=== PATIENT | male | born 1950 | race Caucasian/White ===

== ENCOUNTER → 2016-07-12 | Outpatient (CLI) | payer MEDICARE, BC, OTHER ==
[~2016-07-12] VITALS: Ht 185.4 cm; Wt 99.8 kg
[~2016-07-12] MED LIST: ASPI81TA85 PO; ATOR40TA PO; DICY10SO PO; DUTA1CAP PO; FISH1000 PO; IBUP200C PO; LIDOCAINE 2% INJ 100 MG/5 ML SDV (FOR ANES.) As Ordered ONE; NS 1,000 ML IV ONE; PROPOFOL 500 MG/50 ML VIAL As Ordered ONE
--- NOTE | 2016-07-12 10:23 | ROOR ---
Patient Name: Mike Bradford Procedure Date: 07/12/2016 10:04 AM Date of : 1950 Age: 65 Room: [facility] Gender: Male Note Status: Finalized Procedure: Colonoscopy Indications: Screening for colorectal malignant neoplasm Providers: Brown DEL ANGEL MD Referring MD: SISI ELDRIDGE MD Requesting Provider: Medicines: Monitored Anesthesia Care Complications: No immediate complications. Procedure: Pre-Anesthesia Assessment: - The heart rate, respiratory rate, oxygen saturations, blood pressure, adequacy of pulmonary ventilation, and response to care were monitored throughout the procedure. The Colonoscope was introduced through the anus and advanced to the terminal ileum, with identification of the appendiceal orifice and IC valve. The colonoscopy was performed without difficulty. The patient tolerated the procedure well. The quality of the bowel preparation was good. Findings: The perianal and digital rectal examinations were normal. Three sessile polyps were found in the sigmoid colon. The polyps were 3 to 5 mm in size. These polyps were removed with a cold snare. Resection and retrieval were complete. Small Internal Hemorrhoids. The exam was otherwise without abnormality on direct and retroflexion views. Impression: - Three 3 to 5 mm polyps in the sigmoid colon, removed with a cold snare. Resected and retrieved. - Small Internal Hemorrhoids. - The examination was otherwise normal on direct and retroflexion views. Recommendation: - Repeat colonoscopy in 3 years for surveillance. Brown Del Angel MD Brown DEL ANGEL MD 07/12/2016 10:22:17 AM This report has been signed electronically. Number of Addenda: 0 Note Initiated On: 07/12/2016 10:04 AM Estimated Blood Loss: Estimated blood loss: none.
[2016-07-12 10:45] VITALS: BP 138/81
== END | disposition home or self-care (01) ==
LOC: M OPP 09:12
PROVIDERS: ATTEND Internal Medicine Gastroenterology
DX: Z12.11 Encounter for screening for malignant neoplasm of colon (principal); D12.5 Benign neoplasm of sigmoid colon; K64.8 Other hemorrhoids; E78.5 Hyperlipidemia, unspecified; R35.0 Frequency of micturition; Z91.040 Latex allergy status; Z79.82 Long term (current) use of aspirin; Z79.899 Other long term (current) drug therapy; Z80.1 Family history of malignant neoplasm of trachea, bronchus and lung; Z80.3 Family history of malignant neoplasm of breast

== ENCOUNTER → 2016-09-20 | Outpatient (REF) | payer MEDICARE, OTHER ==
[~2016-09-20] MED LIST changes: -ATOR40TA PO; +ATOR40TA75 PO; -IBUP200C PO; +IBUP200C10 PO; -LIDOCAINE 2% INJ 100 MG/5 ML SDV (FOR ANES.) As Ordered ONE; -NS 1,000 ML IV ONE; -PROPOFOL 500 MG/50 ML VIAL As Ordered ONE
[2016-09-20 12:42] LABS: ALBUMIN 3.7 GM/DL (3.2-5.2); ALBUMIN/GLOBULIN RATIO 1.09 (1.00-1.93); ALKALINE PHOSPHATASE 146 U/L (45-117); ALT/SGPT 51 U/L (12-78); ANION GAP 8 MEQ/L (8-16); AST/SGOT 30 U/L (15-37); BILIRUBIN,TOTAL 0.7 MG/DL (0.2-1.0); BLOOD UREA NITROGEN 16 MG/DL (7-18); CALCIUM LEVEL 8.9 MG/DL (8.8-10.2); CARBON DIOXIDE LEVEL 28 MEQ/L (21-32); CHLORIDE LEVEL 106 MEQ/L (98-107); CHOLESTEROL LEVEL 95 MG/DL (<200); CREATININE FOR GFR 1.04 MG/DL (0.70-1.30); GLOMERULAR FILTRATION RATE > 60.0 (>49); GLUCOSE, FASTING 95 MG/DL (80-110); POTASSIUM SERUM 4.1 MEQ/L (3.5-5.1); SODIUM LEVEL 142 MEQ/L (136-145); TOTAL PROTEIN 7.1 GM/DL (6.4-8.2); TRIGLYCERIDES LEVEL 149 MG/DL (<150)
== END ==
LOC: M LABDRAW1 11:35
PROVIDERS: ATTEND Family Medicine
DX: E78.5 Hyperlipidemia, unspecified (principal); R53.83 Other fatigue; Z11.59 Encounter for screening for other viral diseases

== ENCOUNTER → 2017-09-26 | Outpatient (REF) | payer MEDICARE, OTHER ==
[2017-09-26 13:52] LABS: ALBUMIN 3.6 GM/DL (3.2-5.2); ALBUMIN/GLOBULIN RATIO 0.92 (1.00-1.93); ALKALINE PHOSPHATASE 135 U/L (45-117); ALT/SGPT 67 U/L (12-78); ANION GAP 5 MEQ/L (8-16); AST/SGOT 47 U/L (7-37); BILIRUBIN,TOTAL 1.1 MG/DL (0.2-1.0); BLOOD UREA NITROGEN 16 MG/DL (7-18); CALCIUM LEVEL 8.5 MG/DL (8.8-10.2); CARBON DIOXIDE LEVEL 29 MEQ/L (21-32); CHLORIDE LEVEL 108 MEQ/L (98-107); CHOLESTEROL LEVEL 107 MG/DL (<200); CHOLESTEROL RISK RATIO 1.945 (<5); CREATININE FOR GFR 1.05 MG/DL (0.70-1.30); GLOMERULAR FILTRATION RATE > 60.0 (>49); GLUCOSE, FASTING 98 MG/DL (70-100); HDL CHOLESTEROL 55 MG/DL (>40); LDL CHOLESTEROL 35.4 MG/DL (<100); NON-HDL-C 52 MG/DL; POTASSIUM SERUM 3.8 MEQ/L (3.5-5.1); SODIUM LEVEL 142 MEQ/L (136-145); TOTAL PROTEIN 7.5 GM/DL (6.4-8.2); TRIGLYCERIDES LEVEL 83 MG/DL (<150)
[2017-09-26 14:03] LABS: MALB URINE SIEMENS 6.1 MG/L; MAU/CREAT RATIO 2.8 MCG/MG (0.0-30.0)
== END ==
LOC: M SFHCPLAZ 10:42
DX: I11.9 Hypertensive heart disease without heart failure (principal); E78.2 Mixed hyperlipidemia; K58.9 Irritable bowel syndrome, unspecified; R39.15 Urgency of urination
CPT/HCPCS: 84443

== ENCOUNTER → 2023-01-11 | Outpatient (CLI) | payer MEDICARE, OTHER ==
[~2023-01-11] MED LIST changes: -ASPI81TA85 PO; +ASPI81TA86 PO; -DUTA1CAP PO; +DUTA1CAP2 PO; -IBUP200C10 PO; +IBUP200C25 PO
[2023-01-11 14:31] LABS: BASO % 0.6 % (0.0-1.0); EOS # 0.2 10^3/uL (0.0-0.5); EOS % 2.8 % (0.0-3.0); HEMATOCRIT 41.4 % (42.0-52.0); HEMOGLOBIN 14.4 g/dl (13.5-17.5); LYMPH # 1.9 10^3/uL (1.5-5.0); LYMPH % 30.6 % (24.0-44.0); MEAN CORPUSCULAR HEMOGLOBIN 31.4 pg (27.0-33.0); MEAN CORPUSCULAR HGB CONC 34.8 g/dl (32.0-36.5); MEAN CORPUSCULAR VOLUME 90.4 fl (80.0-96.0); MONO # 0.5 10^3/uL (0.0-0.8); MONO % 7.1 % (2.0-8.0); NEUTROPHILS # 3.7 10^3/uL (1.5-8.5); NEUTROPHILS % 57.6 % (36.0-66.0); PLATELET COUNT, AUTOMATED 186 10^3/uL (150-450); RED BLOOD COUNT 4.58 10^6/uL (4.30-6.10); WHITE BLOOD COUNT 6.3 10^3/uL (4.0-10.0)
[2023-01-11 14:36] LABS: ALBUMIN 3.8 G/DL (3.2-5.2); ALKALINE PHOSPHATASE 80 U/L (46-116); ALT/SGPT 21 U/L (7.0-40); AST/SGOT 24 U/L (<34); BILIRUBIN,TOTAL 1.8 MG/DL (0.3-1.2); BLOOD UREA NITROGEN 14 MG/DL (9-23); CALCIUM LEVEL 8.8 MG/DL (8.3-10.6); CARBON DIOXIDE LEVEL 30 MMOL/L (20-31); CHLORIDE LEVEL 106 MMOL/L (98-107); CHOLESTEROL LEVEL 106 MG/DL (<200); CREATININE FOR GFR 0.83 MG/DL (0.70-1.30); GLOMERULAR FILTRATION RATE > 60.0 (>42); GLUCOSE, FASTING 103 MG/DL (74-106); HDL CHOLESTEROL 42.4 MG/DL (>40); LDL CHOLESTEROL 41.8 MG/DL (<100); NON-HDL-C 63.6 MG/DL; POTASSIUM SERUM 3.4 MMOL/L (3.5-5.1); SODIUM LEVEL 143 MMOL/L (136-145); TRIGLYCERIDES LEVEL 109 MG/DL (<150)
[2023-01-11 14:37] LABS: THYROID STIMULATING HORMONE 0.654 uIU/ML (0.55-4.78)
== END ==
LOC: M WUC 10:33
PROVIDERS: ATTEND Internal Medicine Endocrinology, Diabetes & Metabolism
DX: E78.2 Mixed hyperlipidemia (principal)

== ENCOUNTER → 2023-02-16 | Outpatient (CLI) | payer MEDICARE, BC, OTHER ==
[2023-02-16 09:32] LABS: HEMATOCRIT 39.9 % (42.0-52.0); HEMOGLOBIN 13.9 g/dl (13.5-17.5); MEAN CORPUSCULAR HEMOGLOBIN 31.4 pg (27.0-33.0); MEAN CORPUSCULAR HGB CONC 34.8 g/dl (32.0-36.5); MEAN CORPUSCULAR VOLUME 90.3 fl (80.0-96.0); PLATELET COUNT, AUTOMATED 172 10^3/uL (150-450); RED BLOOD COUNT 4.42 10^6/uL (4.30-6.10)
[2023-02-16 09:39] LABS: HEMOGLOBIN A1c 5.2 % (4.0-6.0)
[2023-02-16 09:40] LABS: ALBUMIN 3.5 G/DL (3.2-5.2); ALKALINE PHOSPHATASE 89 U/L (46-116); ALT/SGPT 22 U/L (7.0-40); AST/SGOT 22 U/L (<34); BILIRUBIN,TOTAL 1.5 MG/DL (0.3-1.2); BLOOD UREA NITROGEN 22 MG/DL (9-23); CALCIUM LEVEL 9.2 MG/DL (8.3-10.6); CARBON DIOXIDE LEVEL 28 MMOL/L (20-31); CHLORIDE LEVEL 111 MMOL/L (98-107); CHOLESTEROL LEVEL 71 MG/DL (<200); CHOLESTEROL RISK RATIO 2.41 (<5); CREATININE FOR GFR 0.79 MG/DL (0.70-1.30); GLOMERULAR FILTRATION RATE > 60.0 (>42); GLUCOSE, FASTING 120 MG/DL (74-106); HDL CHOLESTEROL 29.4 MG/DL (>40); LDL CHOLESTEROL 25.2 MG/DL (<100); NON-HDL-C 41.6 MG/DL; POTASSIUM SERUM 3.5 MMOL/L (3.5-5.1); SODIUM LEVEL 143 MMOL/L (136-145); TOTAL PROTEIN 6.5 G/DL (5.7-8.2); TRIGLYCERIDES LEVEL 82 MG/DL (<150)
[2023-02-16 09:43] LABS: THYROID STIMULATING HORMONE 0.008 uIU/ML (0.55-4.78)
== END ==
LOC: M RAD 08:21
PROVIDERS: ATTEND Family Medicine
DX: I10 Essential (primary) hypertension (principal); R53.83 Other fatigue; E03.9 Hypothyroidism, unspecified; R94.31 Abnormal electrocardiogram [ECG] [EKG]; M47.816 Spondylosis without myelopathy or radiculopathy, lumbar region; M47.817 Spondylosis without myelopathy or radiculopathy, lumbosacral region; N20.0 Calculus of kidney; Z12.5 Encounter for screening for malignant neoplasm of prostate; Z79.899 Other long term (current) drug therapy

== ENCOUNTER 2023-03-02 14:50 | Emergency (ER) | payer MEDICARE, BC, OTHER ==
[~2023-03-02] VITALS: Ht 188 cm; Wt 87.1 kg
[2023-03-02] MEDS ORDERED: LOSA50TA28 PO (15:03)
[2023-03-02 15:47] LABS: BASO % 0.3 % (0.0-1.0); EOS # 0.1 10^3/uL (0.0-0.5); EOS % 1.6 % (0.0-3.0); HEMATOCRIT 35.9 % (42.0-52.0); HEMOGLOBIN 12.4 g/dl (13.5-17.5); LYMPH # 1.4 10^3/uL (1.5-5.0); LYMPH % 36.4 % (24.0-44.0); MEAN CORPUSCULAR HEMOGLOBIN 30.8 pg (27.0-33.0); MEAN CORPUSCULAR HGB CONC 34.5 g/dl (32.0-36.5); MEAN CORPUSCULAR VOLUME 89.1 fl (80.0-96.0); MONO # 0.5 10^3/uL (0.0-0.8); NEUTROPHILS # 1.8 10^3/uL (1.5-8.5); NEUTROPHILS % 48.7 % (36.0-66.0); PLATELET COUNT, AUTOMATED 146 10^3/uL (150-450); RED BLOOD COUNT 4.03 10^6/uL (4.30-6.10); WHITE BLOOD COUNT 3.8 10^3/uL (4.0-10.0)
[2023-03-02 16:20] LABS: BLOOD UREA NITROGEN 25 MG/DL (9-23); CALCIUM LEVEL 9.2 MG/DL (8.3-10.6); CARBON DIOXIDE LEVEL 25 MMOL/L (20-31); CHLORIDE LEVEL 112 MMOL/L (98-107); CK-MB VALUE MASS 1.4 NG/ML (<3.6); CPK CREATINE PHOSPHOKINASE 56 U/L (46-171); CREATININE FOR GFR 0.72 MG/DL (0.70-1.30); GLOMERULAR FILTRATION RATE > 60.0 (>42); GLUCOSE, FASTING 120 MG/DL (74-106); POTASSIUM SERUM 3.4 MMOL/L (3.5-5.1); SODIUM LEVEL 141 MMOL/L (136-145)
[2023-03-02 16:25] LABS: INR 1.35; PROTHROMBIN TIME 16.2 SECONDS (12.5-14.5)
[2023-03-02 16:26] LABS: PARTIAL THROMBOPLASTIN TIME 28.5 SECONDS (24.8-34.2)
[2023-03-02] MEDS ORDERED: ASPIRIN 81MG CHEW TABLET PO ONE ×2 (16:35→16:40)
[2023-03-02] MEDS ORDERED: ISOVUE-370 76% 100ML VIAL As Ordered ONE (16:47)
[2023-03-02 17:13] LABS: CK-MB VALUE MASS 1.7 NG/ML (<3.6)
[2023-03-02] MEDS: NITROGLYCERIN 0.4MG SUBL TABLET SL PRN ×3 (17:14→19:23)
[2023-03-02 17:15] LABS: MB/CK RELATIVE INDEX 3.61 (< OR =4)
[2023-03-02] MEDS ORDERED: HEPARIN SOD (PORCINE) 5000UNITS/ML 1ML VIAL/SYRINGE IV ONE ×2 (17:50→18:10)
[2023-03-02] MEDS ORDERED: HEPARIN SOD (PORCINE) 5000UNITS/ML 1ML VIAL/SYRINGE IV PRN (17:50)
[2023-03-02] MEDS ORDERED: HEPARIN DRIP 25,000 UNITS in IV 1 EA IV SCH ×2 (17:50→18:10)
[2023-03-02 19:23] VITALS: BP 131/81
[2023-03-02 20:23] VITALS: BP 137/79; TEMP 97.7; O2SAT 96
== END 2023-03-02 20:27 | disposition short-term general hospital (02) ==
LOC: M ED 14:50
DX: R07.9 Chest pain, unspecified (principal); I45.10 Unspecified right bundle-branch block; J45.909 Unspecified asthma, uncomplicated; E03.9 Hypothyroidism, unspecified; R51.9 Headache, unspecified; Z88.8 Allergy status to other drugs, medicaments and biological substances; Z91.040 Latex allergy status; Z79.899 Other long term (current) drug therapy
CPT/HCPCS: 71045; 71275; 80048; 82550; 82553; 84484; 85025; 85610; 85730; 93005; 96365; 99285; Q9967

== ENCOUNTER → 2023-03-15 | Outpatient (CLI) | payer MEDICARE, BC, OTHER ==
[~2023-03-15] MED LIST changes: +LOSA50TA28 PO
[2023-03-15 10:34] LABS: HEMATOCRIT 38.2 % (42.0-52.0); HEMOGLOBIN 12.9 g/dl (13.5-17.5); MEAN CORPUSCULAR HEMOGLOBIN 30.2 pg (27.0-33.0); MEAN CORPUSCULAR HGB CONC 33.8 g/dl (32.0-36.5); MEAN CORPUSCULAR VOLUME 89.5 fl (80.0-96.0); PLATELET COUNT, AUTOMATED 174 10^3/uL (150-450); RED BLOOD COUNT 4.27 10^6/uL (4.30-6.10); WHITE BLOOD COUNT 4.7 10^3/uL (4.0-10.0)
[2023-03-15 11:16] LABS: PROSTATIC SPECIFIC AG MONITOR 1.85 NG/ML (< 4.00)
[2023-03-15 11:21] LABS: THYROID STIMULATING HORMONE 0.008 uIU/ML (0.55-4.78); TOTAL 25(OH) VITAMIN D 93.6 NG/ML (20.0-100.0)
[2023-03-15 11:22] LABS: ALKALINE PHOSPHATASE 85 U/L (46-116); ALT/SGPT 50 U/L (7.0-40); AST/SGOT 23 U/L (<34); BILIRUBIN,TOTAL 1.2 MG/DL (0.3-1.2); BLOOD UREA NITROGEN 21 MG/DL (9-23); CALCIUM LEVEL 8.7 MG/DL (8.3-10.6); CARBON DIOXIDE LEVEL 28 MMOL/L (20-31); CHLORIDE LEVEL 111 MMOL/L (98-107); CHOLESTEROL LEVEL 72 MG/DL (<200); CHOLESTEROL RISK RATIO 2.18 (<5); CREATININE FOR GFR 0.75 MG/DL (0.70-1.30); GLOMERULAR FILTRATION RATE > 60.0 (>42); GLUCOSE, FASTING 111 MG/DL (74-106); LDL CHOLESTEROL 20.8 MG/DL (<100); SODIUM LEVEL 144 MMOL/L (136-145); TOTAL PROTEIN 5.9 G/DL (5.7-8.2); TRIGLYCERIDES LEVEL 91 MG/DL (<150)
[2023-03-15 11:23] LABS: FREE T4 6.13 NG/DL (0.89-1.76)
[2023-03-15 15:00] LABS: FREE T3 > 20.0 PG/ML (2.3-4.2)
== END ==
LOC: M WUC 08:11
PROVIDERS: ATTEND Family Medicine
DX: I10 Essential (primary) hypertension (principal); E03.9 Hypothyroidism, unspecified; D64.9 Anemia, unspecified; Z86.39 Personal history of other endocrine, nutritional and metabolic disease; Z79.899 Other long term (current) drug therapy

== ENCOUNTER → 2023-04-26 | Outpatient (REF) | payer MEDICARE, BC, OTHER ==
[2023-04-26 13:44] LABS: THYROID STIMULATING HORMONE 0.008 uIU/ML (0.55-4.78)
[2023-04-26 13:46] LABS: FREE T4 1.17 NG/DL (0.89-1.76)
[2023-04-26 13:51] LABS: TOTAL T3 132.8 NG/DL (60.0-181.0)
== END ==
LOC: M LABDRWAD 12:59
PROVIDERS: ATTEND Physician Assistant
DX: E03.9 Hypothyroidism, unspecified (principal)

== ENCOUNTER → 2023-05-10 | Outpatient (REF) | payer MEDICARE, BC, OTHER ==
[2023-05-10 14:00] LABS: FREE T3 12.8 PG/ML (2.3-4.2); FREE T4 2.11 NG/DL (0.89-1.76); THYROID STIMULATING HORMONE 0.008 uIU/ML (0.55-4.78)
== END ==
LOC: M LABDRWAD 13:00
PROVIDERS: ATTEND Medical Genetics Clinical Genetics (M.D.)
DX: E05.90 Thyrotoxicosis, unspecified without thyrotoxic crisis or storm (principal)

== ENCOUNTER → 2023-05-24 | Outpatient (CLI) | payer MEDICARE, BC | LOC: M RAD 14:56 | PROVIDERS: ATTEND Family Medicine | DX: R22.41 Localized swelling, mass and lump, right lower limb (principal) ==

== ENCOUNTER → 2023-05-25 | Outpatient (REF) | payer MEDICARE, BC ==
[2023-05-25 14:13] LABS: ALBUMIN 3.2 G/DL (3.2-5.2); ALKALINE PHOSPHATASE 94 U/L (46-116); ALT/SGPT 18 U/L (7.0-40); AST/SGOT 16 U/L (<34); BILIRUBIN,TOTAL 0.9 MG/DL (0.3-1.2); BLOOD UREA NITROGEN 17 MG/DL (9-23); CALCIUM LEVEL 8.9 MG/DL (8.3-10.6); CARBON DIOXIDE LEVEL 32 MMOL/L (20-31); CHLORIDE LEVEL 109 MMOL/L (98-107); CREATININE FOR GFR 0.74 MG/DL (0.70-1.30); GLOMERULAR FILTRATION RATE > 60.0 (>42); GLUCOSE, FASTING 103 MG/DL (74-106); POTASSIUM SERUM 3.7 MMOL/L (3.5-5.1); SODIUM LEVEL 144 MMOL/L (136-145); TOTAL PROTEIN 6.4 G/DL (5.7-8.2)
[2023-05-25 14:20] LABS: TOTAL T3 158.3 NG/DL (60.0-181.0)
[2023-05-25 14:21] LABS: BASO % 0.9 % (0.0-1.0); EOS # 0.3 10^3/uL (0.0-0.5); EOS % 5.9 % (0.0-3.0); HEMATOCRIT 39.8 % (42.0-52.0); HEMOGLOBIN 13.1 g/dl (13.5-17.5); LYMPH # 1.6 10^3/uL (1.5-5.0); LYMPH % 35.1 % (24.0-44.0); MEAN CORPUSCULAR HEMOGLOBIN 30.8 pg (27.0-33.0); MEAN CORPUSCULAR HGB CONC 32.9 g/dl (32.0-36.5); MEAN CORPUSCULAR VOLUME 93.6 fl (80.0-96.0); MONO # 0.5 10^3/uL (0.0-0.8); MONO % 11.5 % (2.0-8.0); NEUTROPHILS # 2.1 10^3/uL (1.5-8.5); NEUTROPHILS % 46.4 % (36.0-66.0); PLATELET COUNT, AUTOMATED 155 10^3/uL (150-450); RED BLOOD COUNT 4.25 10^6/uL (4.30-6.10); WHITE BLOOD COUNT 4.4 10^3/uL (4.0-10.0)
== END ==
LOC: M LABDRWAD 12:40
PROVIDERS: ATTEND Student in an Organized Health Care Education/Training Program
DX: E05.90 Thyrotoxicosis, unspecified without thyrotoxic crisis or storm (principal)

== ENCOUNTER → 2023-08-04 | Outpatient (REF) | payer MEDICARE, BC ==
[2023-08-04 13:37] LABS: BASO # 0.1 10^3/uL (0.0-0.2); BASO % 1.2 % (0.0-1.0); EOS # 0.2 10^3/uL (0.0-0.5); EOS % 5.2 % (0.0-3.0); HEMATOCRIT 41.5 % (42.0-52.0); HEMOGLOBIN 14.1 g/dl (13.5-17.5); LYMPH # 1.5 10^3/uL (1.5-5.0); MEAN CORPUSCULAR HEMOGLOBIN 31.5 pg (27.0-33.0); MEAN CORPUSCULAR VOLUME 92.6 fl (80.0-96.0); MONO # 0.5 10^3/uL (0.0-0.8); MONO % 11.4 % (2.0-8.0); NEUTROPHILS % 46.2 % (36.0-66.0); PLATELET COUNT, AUTOMATED 152 10^3/uL (150-450); RED BLOOD COUNT 4.48 10^6/uL (4.30-6.10); WHITE BLOOD COUNT 4.2 10^3/uL (4.0-10.0)
[2023-08-04 14:12] LABS: ALBUMIN 3.8 G/DL (3.2-5.2); ALKALINE PHOSPHATASE 109 U/L (46-116); ALT/SGPT 27 U/L (7.0-40); AST/SGOT 23 U/L (<34); BILIRUBIN,TOTAL 1.2 MG/DL (0.3-1.2); BLOOD UREA NITROGEN 15 MG/DL (9-23); CALCIUM LEVEL 9.2 MG/DL (8.3-10.6); CARBON DIOXIDE LEVEL 31 MMOL/L (20-31); CHLORIDE LEVEL 103 MMOL/L (98-107); CREATININE FOR GFR 1.01 MG/DL (0.70-1.30); FREE T4 0.51 NG/DL (0.89-1.76); GLOMERULAR FILTRATION RATE > 60.0 (>42); GLUCOSE, FASTING 95 MG/DL (74-106); SODIUM LEVEL 139 MMOL/L (136-145); TOTAL T3 115.7 NG/DL (60.0-181.0)
== END ==
LOC: M LABDRWAD 12:22
PROVIDERS: ATTEND Internal Medicine Endocrinology, Diabetes & Metabolism
DX: E05.90 Thyrotoxicosis, unspecified without thyrotoxic crisis or storm (principal)

== ENCOUNTER → 2023-09-13 | Outpatient (REF) | payer MEDICARE, BC ==
[2023-09-13 15:47] LABS: TOTAL T3 120.3 NG/DL (60.0-181.0)
[2023-09-13 15:48] LABS: FREE T4 0.63 NG/DL (0.89-1.76); THYROID STIMULATING HORMONE 9.272 uIU/ML (0.55-4.78)
== END ==
LOC: M LABDRAWP 13:28
PROVIDERS: ATTEND Internal Medicine Endocrinology, Diabetes & Metabolism
DX: E05.90 Thyrotoxicosis, unspecified without thyrotoxic crisis or storm (principal)

== ENCOUNTER → 2023-10-26 | Outpatient (REF) | payer MEDICARE, OTHER ==
[2023-10-26 13:54] LABS: FREE T4 0.82 NG/DL (0.89-1.76); THYROID STIMULATING HORMONE 5.239 uIU/ML (0.55-4.78)
[2023-10-26 13:56] LABS: TOTAL T3 124.3 NG/DL (60.0-181.0)
== END ==
LOC: M LABDRWAD 12:46
PROVIDERS: ATTEND Internal Medicine Endocrinology, Diabetes & Metabolism
DX: E05.90 Thyrotoxicosis, unspecified without thyrotoxic crisis or storm (principal)

== ENCOUNTER → 2023-12-09 | Outpatient (REF) | payer MEDICARE, OTHER ==
[2023-12-09 14:01] LABS: THYROID STIMULATING HORMONE 2.526 uIU/ML (0.55-4.78); TOTAL T3 109.8 NG/DL (60.0-181.0)
[2023-12-09 14:03] LABS: FREE T4 1.02 NG/DL (0.89-1.76)
== END ==
LOC: M LABWUC 13:01
PROVIDERS: ATTEND Internal Medicine Endocrinology, Diabetes & Metabolism
DX: E05.90 Thyrotoxicosis, unspecified without thyrotoxic crisis or storm (principal)

== ENCOUNTER → 2024-03-07 | Outpatient (REF) | payer MEDICARE, OTHER ==
[~2024-03-07] MED LIST changes: +ALEN70TA82 PO; +ATOR1TAB19 PO; +DOXA1TAB42 PO; +ERGO500029 PO; +FURO40TA2 PO; +POTA1TAB21 PO; +PROP50TA3 PO; +PROP60CA PO
[2024-03-07 15:17] LABS: CREATININE, URINE 379.1 MG/DL; MAU/CREAT RATIO 2.6 MCG/MG (0.0-30.0)
[2024-03-07 15:47] LABS: PSA SCREENING 2.1 NG/ML (< 4.00)
[2024-03-07 15:49] LABS: HEMOGLOBIN A1c 5.3 % (4.0-6.0)
[2024-03-07 15:54] LABS: THYROID STIMULATING HORMONE 2.221 uIU/ML (0.55-4.78)
[2024-03-07 15:59] LABS: ALBUMIN 4.3 G/DL (3.2-5.2); BILIRUBIN,TOTAL 2.2 MG/DL (0.3-1.2); CALCIUM LEVEL 9.5 MG/DL (8.3-10.6); CHOLESTEROL RISK RATIO 2.71 (<5); CREATININE FOR GFR 1.28 MG/DL (0.70-1.30); GLOMERULAR FILTRATION RATE 58.5 (>42); HDL CHOLESTEROL 47.8 MG/DL (>40); LDL CHOLESTEROL 58.6 MG/DL (<100); NON-HDL-C 82.2 MG/DL; POTASSIUM SERUM 4.5 MMOL/L (3.5-5.1); TOTAL PROTEIN 7.8 G/DL (5.7-8.2)
== END ==
LOC: M LAB REF 13:11
PROVIDERS: ATTEND Family Medicine Addiction Medicine
DX: Z76.89 Persons encountering health services in other specified circumstances (principal); R35.0 Frequency of micturition; Z12.5 Encounter for screening for malignant neoplasm of prostate; Z79.899 Other long term (current) drug therapy
CPT/HCPCS: 80053; 80061; 82043; 83036; 84443; G0103

== ENCOUNTER → 2024-06-06 | Outpatient (REF) | payer MEDICARE, OTHER ==
[2024-06-06 14:49] LABS: FREE T4 1.08 NG/DL (0.89-1.76); THYROID STIMULATING HORMONE 2.263 uIU/ML (0.55-4.78)
[2024-06-06 14:51] LABS: TOTAL T3 109.8 NG/DL (60.0-181.0)
== END ==
LOC: M LABDRWAD 12:58
PROVIDERS: ATTEND Internal Medicine
DX: E05.90 Thyrotoxicosis, unspecified without thyrotoxic crisis or storm (principal)

== ENCOUNTER → 2024-08-29 | Outpatient (CLI) | payer MEDICARE, BC ==
[~2024-08-29] MED LIST changes: +ASPI81TA26 PO; +CETI-24 PO; +TAMS-18 PO
[2024-08-29 17:06] LABS: CALCIUM LEVEL 9.4 MG/DL (8.3-10.6); CARBON DIOXIDE LEVEL 28.0 MMOL/L (20-31); CHLORIDE LEVEL 103.0 MMOL/L (98-107); CHOLESTEROL LEVEL 120.0 MG/DL (<200); CHOLESTEROL RISK RATIO 2.99 (<5); CREATININE FOR GFR 1.11 MG/DL (0.70-1.30); GLOMERULAR FILTRATION RATE 69.3 (>42); LDL CHOLESTEROL 44.7 MG/DL (<100); NON-HDL-C 79.9 MG/DL; POTASSIUM SERUM 4.1 MMOL/L (3.5-5.1); SODIUM LEVEL 141.0 MMOL/L (136-145); TRIGLYCERIDES LEVEL 176.0 MG/DL (<150)
== END ==
LOC: M LAB 15:47
PROVIDERS: ATTEND Internal Medicine Critical Care Medicine
DX: I34.1 Nonrheumatic mitral (valve) prolapse (principal); E78.00 Pure hypercholesterolemia, unspecified

== ENCOUNTER → 2024-08-30 | Outpatient (CLI) | payer MEDICARE, BC ==
[~2024-08-30] MED LIST changes: +ISOVUE-370 76% 100 ML VIAL As Ordered ONE
== END ==
LOC: M RAD 09:30
PROVIDERS: ATTEND Internal Medicine Critical Care Medicine
DX: I34.1 Nonrheumatic mitral (valve) prolapse (principal)
CPT/HCPCS: 71275; Q9967

== ENCOUNTER 2024-09-28 08:46 | Emergency (ER) | payer MEDICARE, BC ==
[~2024-09-28 08:46] MED LIST changes: -ISOVUE-370 76% 100 ML VIAL As Ordered ONE
[2024-09-28 09:39] LABS: BASO # 0.0 10^3/uL (0.0-0.2); BASO % 0.6 % (0.0-1.0); EOS # 0.1 10^3/uL (0.0-0.5); EOS % 0.9 % (0.0-3.0); LYMPH # 0.8 10^3/uL (1.5-5.0); LYMPH % 11.8 % (24.0-44.0); MONO # 0.4 10^3/uL (0.0-0.8); MONO % 5.4 % (2.0-8.0); NEUTROPHILS # 5.7 10^3/uL (1.5-8.5); NEUTROPHILS % 81.0 % (36.0-66.0); PLATELET COUNT, AUTOMATED 201 10^3/uL (150-450)
[2024-09-28 09:52] LABS: CALCIUM LEVEL 9.6 MG/DL (8.3-10.6); CARBON DIOXIDE LEVEL 22.0 MMOL/L (20-31); CHLORIDE LEVEL 110.0 MMOL/L (98-107); CREATININE FOR GFR 0.98 MG/DL (0.70-1.30); GLOMERULAR FILTRATION RATE 80.4 (>42); POTASSIUM SERUM 4.8 MMOL/L (3.5-5.1); SODIUM LEVEL 144.0 MMOL/L (136-145)
[2024-09-28] MEDS: LIDOCAINE 2% 5 ML JELLY UROJET TOP ONE (10:13)
[2024-09-28] MEDS ORDERED: CETI-24 PO (11:37)
[2024-09-28] MEDS ORDERED: DUTA1CAP10 PO (11:37)
[2024-09-28] MEDS ORDERED: HOME MED LIST COMPLETE! XX SCH (11:40)
[2024-09-28 11:56] LABS: KETONE, URINE AUTO RFX NEGATIVE (NEGATIVE); NITRITE, URINE AUTO RFX NEGATIVE (NEGATIVE); RBC, URINE AUTO RFX 15 /HPF (0-3); SQUAM EPITHELIAL CELL UR AURFX 0 /HPF (0-6)
[2024-09-28 12:30] LABS: LEUKOCYTE ESTERASE UR AUTO RFX 3+ (NEGATIVE); WBC, URINE AUTO RFX TNTC /HPF (0-3)
[2024-09-28] MEDS ORDERED: CIPR-249 PO (12:58)
[2024-09-28 13:30] VITALS: BP 118/90; TEMP 97.2; O2SAT 96
[2024-09-28] MEDS: CIPROFLOXACIN 500 MG TABLET PO ONE (13:39)
== END 2024-09-28 13:52 | disposition home or self-care (01) ==
LOC: EDBD 08:46 → M ED 08:46
DX: T83.098A Other mechanical complication of other urinary catheter, initial encounter (principal); N39.0 Urinary tract infection, site not specified; I10 Essential (primary) hypertension; E78.5 Hyperlipidemia, unspecified; Z86.718 Personal history of other venous thrombosis and embolism; Z88.0 Allergy status to penicillin; Z91.040 Latex allergy status; Z79.82 Long term (current) use of aspirin; Z79.1 Long term (current) use of non-steroidal anti-inflammatories (NSAID); Z79.899 Other long term (current) drug therapy

== ENCOUNTER 2024-10-25 12:50 | Emergency (ER) | payer MEDICARE, BC ==
[~2024-10-25] VITALS: Ht 188 cm; Wt 90.5 kg
[~2024-10-25 12:50] MED LIST changes: +CIPR-249 PO; +DUTA1CAP10 PO
[2024-10-25 13:55] LABS: BASO # 0.0 10^3/uL (0.0-0.2); BASO % 0.2 % (0.0-1.0); EOS # 0.0 10^3/uL (0.0-0.5); EOS % 0.0 % (0.0-3.0); LYMPH # 0.5 10^3/uL (1.5-5.0); LYMPH % 9.5 % (24.0-44.0); MONO # 0.5 10^3/uL (0.0-0.8); MONO % 9.9 % (2.0-8.0); NEUTROPHILS # 4.4 10^3/uL (1.5-8.5); NEUTROPHILS % 80.0 % (36.0-66.0); PLATELET COUNT, AUTOMATED 118 10^3/uL (150-450)
[2024-10-25 14:01] LABS: ERYTHROCYTE SEDIMENTATION RATE 13 mm/hr (0-20)
[2024-10-25] MEDS: NS (Normal Saline) 0.9% 1,000 ML IV ONE (14:09)
[2024-10-25] MEDS: KETOROLAC 30 MG/ML 1 ML VIAL IV ONE (14:11)
[2024-10-25] MEDS: diphenhydrAMINE 50 MG/ML VIAL IV ONE (14:12)
[2024-10-25] MEDS: ACETAMINOPHEN 500 MG TAB PO ONE (14:13)
[2024-10-25 14:16] LABS: C REACTIVE PROTEIN QUANTITATIV 1.07 MG/DL (<1.0)
[2024-10-25 14:17] LABS: CALCIUM LEVEL 8.9 MG/DL (8.3-10.6); CARBON DIOXIDE LEVEL 25.0 MMOL/L (20-31); CHLORIDE LEVEL 102.0 MMOL/L (98-107); CREATININE FOR GFR 1.01 MG/DL (0.70-1.30); GLOMERULAR FILTRATION RATE 77.6 (>42); POTASSIUM SERUM 3.7 MMOL/L (3.5-5.1); SODIUM LEVEL 136.0 MMOL/L (136-145)
[2024-10-25] MEDS ORDERED: ISOVUE-370 76% 100 ML VIAL As Ordered ONE (17:00)
[2024-10-25 18:39] VITALS: TEMP 96.9
[2024-10-25] MEDS: LR 1,000 ML IV ONE (19:15)
[2024-10-25 20:08] LABS: KETONE, URINE AUTO RFX NEGATIVE (NEGATIVE); LEUKOCYTE ESTERASE UR AUTO RFX TRACE (NEGATIVE); NITRITE, URINE AUTO RFX NEGATIVE (NEGATIVE); RBC, URINE AUTO RFX 7 /HPF (0-3); SQUAM EPITHELIAL CELL UR AURFX 0 /HPF (0-6); WBC, URINE AUTO RFX 11 /HPF (0-3)
[2024-10-25 22:00] VITALS: BP 124/63; O2SAT 97
[2024-10-25] MEDS ORDERED: ACET-1515 PO (22:09)
== END 2024-10-25 22:29 | disposition home or self-care (01) ==
LOC: EDBD 12:50 → M ED 12:50
DX: R51.9 Headache, unspecified (principal); N28.1 Cyst of kidney, acquired; E03.9 Hypothyroidism, unspecified; R01.1 Cardiac murmur, unspecified; Z88.0 Allergy status to penicillin; Z91.040 Latex allergy status; Z79.82 Long term (current) use of aspirin; Z79.02 Long term (current) use of antithrombotics/antiplatelets; Z79.1 Long term (current) use of non-steroidal anti-inflammatories (NSAID); Z79.899 Other long term (current) drug therapy
CPT/HCPCS: 70450; 70551; 74177; 80048; 81001; 85025; 85652; 86140; 87088; 87186; 87486; 87581; 87633; 87798; 96361; 96374; 96375; 99285; J1200; J1885; J2765; Q9967

== ENCOUNTER → 2024-11-09 | Outpatient (REF) | payer MEDICARE, BC ==
[~2024-11-09] MED LIST changes: +ACET-1515 PO
[2024-11-09 12:06] LABS: APPEARANCE, URINE CLOUDY (CLEAR); BACTERIA, URINE AUTO NEGATIVE (NEGATIVE); BILIRUBIN, URINE AUTO NEGATIVE (NEGATIVE); BLOOD, URINE BLOOD 3+ (NEGATIVE); GLUCOSE, URINE (UA) AUTO 1+ mg/dL (NEGATIVE); KETONE, URINE AUTO TRACE mg/dL (NEGATIVE); LEUKOCYTE ESTERASE, URINE AUTO 2+ (NEGATIVE); MUCUS, URINE SMALL (NEGATIVE); NITRITE, URINE AUTO NEGATIVE (NEGATIVE); PROTEIN, URINE AUTO 2+ mg/dL (NEGATIVE); RBC, URINE AUTO TNTC /HPF (0-3); SPECIFIC GRAVITY URINE AUTO 1.031 (1.002-1.035); SQUAMOUS EPITHELIAL CELL UR AU 0 /HPF (0-6); UROBILINOGEN, URINE AUTO 0.2 mg/dL (0.0-2.0); WBC, URINE AUTO TNTC /HPF (0-3)
== END ==
LOC: M LAB REF 11:35
PROVIDERS: ATTEND Urology
DX: R39.9 Unspecified symptoms and signs involving the genitourinary system (principal)

== ENCOUNTER → 2024-11-23 | Outpatient (REF) | payer MEDICARE, BC ==
[2024-11-23 13:21] LABS: APPEARANCE, URINE CLOUDY (CLEAR); BACTERIA, URINE AUTO NEGATIVE (NEGATIVE); BILIRUBIN, URINE AUTO NEGATIVE (NEGATIVE); BLOOD, URINE BLOOD 3+ (NEGATIVE); GLUCOSE, URINE (UA) AUTO 1+ mg/dL (NEGATIVE); KETONE, URINE AUTO TRACE mg/dL (NEGATIVE); LEUKOCYTE ESTERASE, URINE AUTO 2+ (NEGATIVE); MUCUS, URINE MODERATE (NEGATIVE); NITRITE, URINE AUTO NEGATIVE (NEGATIVE); PROTEIN, URINE AUTO 2+ mg/dL (NEGATIVE); RBC, URINE AUTO TNTC /HPF (0-3); SPECIFIC GRAVITY URINE AUTO 1.030 (1.002-1.035); SQUAMOUS EPITHELIAL CELL UR AU 0 /HPF (0-6); UROBILINOGEN, URINE AUTO 0.2 mg/dL (0.0-2.0); WBC, URINE AUTO TNTC /HPF (0-3)
== END ==
LOC: M LAB REF 12:03
PROVIDERS: ATTEND Physician Assistant
DX: N39.0 Urinary tract infection, site not specified (principal)

== ENCOUNTER 2024-12-26 23:53 | Emergency (ER) | payer MEDICARE, BC ==
[~2024-12-26] VITALS: Ht 188 cm; Wt 91.3 kg
[2024-12-27 01:25] VITALS: BP 136/79; TEMP 98.4; O2SAT 98
== END 2024-12-27 01:26 | disposition home or self-care (01) ==
LOC: M ED 23:53
DX: T82.838A Hemorrhage due to vascular prosthetic devices, implants and grafts, initial encounter (principal); I25.2 Old myocardial infarction; Z86.79 Personal history of other diseases of the circulatory system; Z88.0 Allergy status to penicillin; Z91.040 Latex allergy status; Z79.1 Long term (current) use of non-steroidal anti-inflammatories (NSAID); Z79.82 Long term (current) use of aspirin; Z79.02 Long term (current) use of antithrombotics/antiplatelets; Z79.899 Other long term (current) drug therapy

== ENCOUNTER → 2025-01-02 | Outpatient (REF) | payer MEDICARE, OTHER ==
[2025-01-02 10:55] LABS: PLATELET COUNT, AUTOMATED 160 10^3/uL (150-450)
[2025-01-02 11:16] LABS: C REACTIVE PROTEIN QUANTITATIV < 0.50 MG/DL (<1.0)
[2025-01-02 11:18] LABS: ALT/SGPT 18 U/L (7.0-40); AST/SGOT 16 U/L (<34); CALCIUM LEVEL 8.4 MG/DL (8.3-10.6); CARBON DIOXIDE LEVEL 26 MMOL/L (20-31); CHLORIDE LEVEL 107 MMOL/L (98-107); CREATININE FOR GFR 0.85 MG/DL (0.70-1.30); GLOMERULAR FILTRATION RATE > 90.0 (>42); POTASSIUM SERUM 3.9 MMOL/L (3.5-5.1); SODIUM LEVEL 145 MMOL/L (136-145)
== END ==
LOC: M LAB REF 09:59
PROVIDERS: ATTEND Internal Medicine Infectious Disease
DX: R78.81 Bacteremia (principal)

== ENCOUNTER → 2025-01-09 | Outpatient (REF) | payer MEDICARE, OTHER ==
[2025-01-09 11:48] LABS: PLATELET COUNT, AUTOMATED 173 10^3/uL (150-450)
[2025-01-09 12:19] LABS: C REACTIVE PROTEIN QUANTITATIV < 0.50 MG/DL (<1.0)
[2025-01-09 12:20] LABS: ALT/SGPT 15 U/L (7.0-40); AST/SGOT 19 U/L (<34); CALCIUM LEVEL 8.6 MG/DL (8.3-10.6); CARBON DIOXIDE LEVEL 26 MMOL/L (20-31); CHLORIDE LEVEL 108 MMOL/L (98-107); CREATININE FOR GFR 0.81 MG/DL (0.70-1.30); GLOMERULAR FILTRATION RATE > 90.0 (>42); POTASSIUM SERUM 3.7 MMOL/L (3.5-5.1); SODIUM LEVEL 144 MMOL/L (136-145)
== END ==
LOC: M LAB REF 11:33
PROVIDERS: ATTEND Physician Assistant Surgical
DX: R78.81 Bacteremia (principal)

== ENCOUNTER → 2025-01-16 | Outpatient (REF) | payer MEDICARE, OTHER ==
[2025-01-16 13:25] LABS: PLATELET COUNT, AUTOMATED 176 10^3/uL (150-450)
[2025-01-16 14:02] LABS: ALT/SGPT 16 U/L (7.0-40); AST/SGOT 18 U/L (<34); CALCIUM LEVEL 8.8 MG/DL (8.3-10.6); CARBON DIOXIDE LEVEL 25 MMOL/L (20-31); CHLORIDE LEVEL 106 MMOL/L (98-107); CREATININE FOR GFR 0.80 MG/DL (0.70-1.30); GLOMERULAR FILTRATION RATE > 90.0 (>42); POTASSIUM SERUM 3.8 MMOL/L (3.5-5.1); SODIUM LEVEL 141 MMOL/L (136-145)
== END ==
LOC: M LAB REF 12:37
DX: R78.81 Bacteremia (principal)